=== PATIENT | female | born 1995 | race Caucasian/White ===

== ENCOUNTER 2017-04-06 18:36 | Emergency (ER) | payer OTHER ==
[~2017-04-06] VITALS: Ht 167.6 cm; Wt 75.9 kg
[2017-04-06 19:00] VITALS: BP 134/69; TEMP 98.7
[2017-04-06 21:32] LABS: PH 6 (5-8); URINE APPEARANCE Hazy; URINE BACTERIA Rare /hpf; URINE BILIRUBIN Negative (NEGATIVE); URINE BLOOD 1+ (NEGATIVE); URINE COLOR Yellow; URINE GLUCOSE Negative (NEGATIVE); URINE KETONE Negative (NEGATIVE)
[2017-04-06] MEDS ORDERED: MACROBID 1100 MG/CAP PO (21:58)
[2017-04-06] MEDS ORDERED: PYRIDIUM 100MG100 MG PO (21:58)
[2017-04-06 22:23] VITALS: PULSE 70
== END 2017-04-06 22:23 | disposition home or self-care (01) ==
LOC: COL.ER 18:36
PROVIDERS: Emergency Medicine
DX: N39.0 Urinary tract infection, site not specified (principal)

== ENCOUNTER 2018-09-18 21:12 | Emergency (ER) | payer OTHER ==
[~2018-09-18] VITALS: Ht 170.2 cm; Wt 72.7 kg
[~2018-09-18 21:12] MED LIST: MACROBID 1100 MG/CAP PO; PYRIDIUM 100MG100 MG PO
[2018-09-18 21:20] VITALS: BP 126/76; TEMP 98.6
[2018-09-18] MEDS ORDERED: CEPHALEXIN500 M1 PO (22:50)
[2018-09-18 23:03] VITALS: PULSE 82
== END 2018-09-18 23:03 | disposition home or self-care (01) ==
LOC: COL.ER 21:12
DX: S91.332A Puncture wound without foreign body, left foot, initial encounter (principal); W22.8XXA Striking against or struck by other objects, initial encounter